=== PATIENT | female | born 1995 | race Caucasian/White ===

== ENCOUNTER 2019-04-27 19:07 | Emergency (ER) | payer OTHER ==
[~2019-04-27] VITALS: Ht 162.6 cm; Wt 66.5 kg
[~2019-04-27 19:07] MED LIST: ALBU18HF INHALATION; NAPR-985 PO; UDTYL
[2019-04-27 19:18] VITALS: BP 106/68; PULSE 68; RESP 18; Ht 162.6 cm; Wt 66.5 kg
[2019-04-27] MEDS ORDERED: IBUPROFEN 600 MG TAB PO ONE (21:00)
== END 2019-04-27 22:16 | disposition home or self-care (01) ==
LOC: FTE 19:07
DX: S90.121A Contusion of right lesser toe(s) without damage to nail, initial encounter (principal); X50.1XXA Overexertion from prolonged static or awkward postures, initial encounter; Y92.59 Other trade areas as the place of occurrence of the external cause
CPT/HCPCS: 73610; 73630; Z7502; Z7610